=== PATIENT | female | born 1995 | race Two or more races ===

== ENCOUNTER 2018-11-23 | Emergency (ER) | payer OTHER ==
[~2018-11-23] VITALS: Ht 167.6 cm; Wt 81.6 kg
[2018-11-23] MEDS ORDERED: SILVADENE20 GM TOP (02:07)
[2018-11-23] MEDS ORDERED: DUI500 PO (02:07)
[2018-11-23] MEDS ORDERED: KETO10TA2 PO (02:07)
== END 2018-11-23 02:12 | disposition home or self-care (01) ==
LOC: ER
DX: T25.211A Burn of second degree of right ankle, initial encounter (principal); X10.2XXA Contact with fats and cooking oils, initial encounter; Y93.G3 Activity, cooking and baking; Y92.511 Restaurant or cafe as the place of occurrence of the external cause; Y99.8 Other external cause status